=== PATIENT | female | born 1970 | race African-American/Black ===

== ENCOUNTER 2017-01-16 21:48 | Emergency (ER) | payer OTHER | END 2017-01-16 23:37 | LOC: ERS 21:48 | DX: Z02.89 Encounter for other administrative examinations (principal); D50.0 Iron deficiency anemia secondary to blood loss (chronic); I10 Essential (primary) hypertension; Z87.891 Personal history of nicotine dependence ==

== ENCOUNTER 2017-01-22 15:07 | Emergency (ER) | payer OTHER ==
[2017-01-22 16:32] LABS: #Basophils 0.1 thou/uL (0.0-0.2); #Eosinphils 0.1 thou/uL (0.0-0.7); #Lymphocytes 2.5 thou/uL (1.20-3.40); #Monocytes 0.3 thou/uL (0.11-0.59); #Neutrophils 3.3 thou/uL (1.40-6.50); %Basophils 1.1 % (0.0-1.0); %Eosinophils 0.8 % (0.0-10.0); %Lymphocytes 40.4 % (21.0-51.0); %Monocytes 4.6 % (0.0-10.0); Mean Platelet Volume 7.5 fL (7.4-10.4); Red Blood Cell (RBC) Count 4.77 mill/uL (4.20-5.40); White Blood Cell (WBC) Count 6.1 thou/uL (4.8-10.8)
[2017-01-22] MEDS ORDERED: diphenhydrAMINE HCl 50 MG/ML 1 ML VIAL ONE (16:38)
[2017-01-22] MEDS ORDERED: Acetaminophen 500 MG TAB ONE (16:39)
[2017-01-22] MEDS ORDERED: Metoclopramide HCl 10 MG/2 ML VIAL ONE (16:39)
[2017-01-22 16:59] LABS: Acetaminophen Less than 6.0 mcg/mL (10.0-30.0); Salicylate Less than 8.0 mg/dL (15.0-30.0)
[2017-01-22 17:00] LABS: ALT (SGPT) 19 U/L (8-55); AST (SGOT) 35 U/L (5-34); Alkaline Phosphatase 113 U/L (40-150); Anion Gap 19 mmol/L (10-20); BUN (Urea Nitrogen) 7 mg/dL (7.0-18.7); Bilirubin, Total 0.2 mg/dL (0.2-1.2); Calc. Creatinine Clearance 0 mL/min (70-130); Calcium 9.1 mg/dL (7.8-10.44); Carbon Dioxide 20 mmol/L (22-29); Chloride 105 mmol/L (98-107); Estimated GFR-MDRD 89; Globulin 3.3 g/dL (2.4-3.5); Protein, Total 7.5 g/dL (6.0-8.3)
[2017-01-22] MEDS ORDERED: Ondansetron HCl/PF 4 MG/2 ML Vial ONE (18:36)
[2017-01-22 19:33] LABS: Bilirubin Negative (Negative); Blood, Urine Negative (Negative); Glucose, Urine (Dipstick) Negative (Negative); Ketone, Urine Negative (Negative); Nitrite Negative (Negative); Protein, Urine (Dipstick) Negative (Neg-Trace); Urobilinogen 0.2 mg/dL (0.2-1.0)
[2017-01-22 19:44] LABS: Amphetamine Not Detected (NotDetected); Methadone Not Detected (NotDetected); Methamphetamine Not Detected (NotDetected)
== END 2017-01-22 21:15 | disposition home or self-care (01) ==
LOC: ERS 15:07 → EEVIPCON 15:07 → ERS 21:15
DX: F10.129 Alcohol abuse with intoxication, unspecified (principal); I10 Essential (primary) hypertension; Z87.891 Personal history of nicotine dependence; D50.9 Iron deficiency anemia, unspecified
CPT/HCPCS: 36415; 80053; 80306; 80307; 81003; 81025; 84443; 85025; 96361; 96374; 96375; J1200; J2405; J2765

== ENCOUNTER 2017-02-15 21:17 | Observation (INO) | payer OTHER ==
[2017-02-15 22:01] LABS: #Basophils 0.1 thou/uL (0.0-0.2); #Eosinphils 0.1 thou/uL (0.0-0.7); #Lymphocytes 1.6 thou/uL (1.20-3.40); #Monocytes 0.5 thou/uL (0.11-0.59); #Neutrophils 2.4 thou/uL (1.40-6.50); %Basophils 1.5 % (0.0-1.0); %Eosinophils 1.8 % (0.0-10.0); %Monocytes 10.6 % (0.0-10.0); Hematocrit 36.6 % (36.0-47.0); Mean Platelet Volume 8.2 fL (7.4-10.4); Red Blood Cell (RBC) Count 3.73 mill/uL (4.20-5.40); White Blood Cell (WBC) Count 4.6 thou/uL (4.8-10.8)
[2017-02-15 22:21] LABS: ALT (SGPT) 94 U/L (8-55); AST (SGOT) 76 U/L (5-34); Alkaline Phosphatase 116 U/L (40-150); Anion Gap 12 mmol/L (10-20); BUN (Urea Nitrogen) 9 mg/dL (7.0-18.7); Bilirubin, Total 0.2 mg/dL (0.2-1.2); CK (CPK) 146 U/L (29-168); Calc. Creatinine Clearance 0 mL/min (70-130); Calcium 8.7 mg/dL (7.8-10.44); Carbon Dioxide 25 mmol/L (22-29); Chloride 106 mmol/L (98-107); Estimated GFR-MDRD Greater than 90; Globulin 2.6 g/dL (2.4-3.5); Protein, Total 6.1 g/dL (6.0-8.3)
--- NOTE | 2017-02-15 22:21 | RAD ---
UPRIGHT PORTABLE CHEST ONE VIEW: History: 46-year-old female with chest pain and bilateral lower extremity swelling which began this morning. FINDINGS: Heart size is within normal limits. The lungs are clear. No pneumonia, edema, or pleural effusion. IMPRESSION: No acute intrathoracic disease. Stable from prior study of 09-27-16. POS: [facility]
[2017-02-15 22:25] LABS: Troponin I Less than 0.010 ng/mL (< 0.028)
[2017-02-15 23:28] LABS: PTT 28.9 SEC (22.9-36.1); Prothrombin Time 12.7 SEC (12.0-14.7)
[2017-02-15] MEDS ORDERED: Nitroglycerin 0.4 MG TAB (25 Tab Bottle) ONE (23:38)
[2017-02-16 00:08] LABS: Bilirubin Negative (Negative); Blood, Urine Negative (Negative); Glucose, Urine (Dipstick) Negative (Negative); Ketone, Urine Negative (Negative); Nitrite Negative (Negative); Protein, Urine (Dipstick) Negative (Neg-Trace)
[2017-02-16] MEDS ORDERED: Morphine 10 MG/ML VIAL ONE (00:38)
[2017-02-16 01:57] LABS: Troponin I Less than 0.010 ng/mL (< 0.028)
[2017-02-16] MEDS ORDERED: Acetaminophen 325 MG TAB PO PRN ×2 (02:23→03:33)
[2017-02-16] MEDS ORDERED: Ondansetron HCl/PF 4 MG/2 ML Vial IVP PRN ×2 (02:23→03:33)
[2017-02-16] MEDS ORDERED: Ondansetron ODT 4 MG TAB SL PRN (02:23)
[2017-02-16] MEDS ORDERED: Benzonatate 100 MG CAP PO PRN (03:33)
[2017-02-16] MEDS ORDERED: cloNIDine 0.1 MG TAB PO PRN (03:33)
[2017-02-16] MEDS ORDERED: Nitroglycerin 0.4 MG TAB (25 Tab Bottle) SL PRN (03:33)
[2017-02-16] MEDS ORDERED: Senokot 8.6 MG TAB PO PRN (03:33)
[2017-02-16] MEDS ORDERED: Mag-Al 1200 mg/1200 mg/30 ML UDCUP PO PRN (03:33)
[2017-02-16] MEDS ORDERED: Lorazepam 1 MG TAB PO PRN (03:33)
[2017-02-16] MEDS ORDERED: Bisacodyl 5 MG TAB PO PRN (03:33)
[2017-02-16] MEDS ORDERED: Loratadine 10 MG TAB PO PRN (03:33)
[2017-02-16] MEDS ORDERED: hydrALAZINE 20 MG/ML VIAL SLOW IVP PRN (03:33)
[2017-02-16] MEDS ORDERED: Diabetic Tussin 200 MG/10 ML UDCUP PO PRN (03:33)
[2017-02-16] MEDS ORDERED: Calcium Carbonate 500 MG ChewTAB PO PRN (03:33)
[2017-02-16 04:05] VITALS: BMI 33.1
[2017-02-16] MEDS ORDERED: Polyethylene Glycol 3350 17 GM Packet PO PRN (04:13)
[2017-02-16] MEDS ORDERED: Morphine 10 MG/ML VIAL SLOW IVP SCH (04:15)
[2017-02-16] MEDS ORDERED: Furosemide 20 MG TAB PO SCH (04:30)
[2017-02-16] MEDS: HYDROcodone/Acetaminophen 5/325 mg Tablet PO PRN ×2 (05:07→09:10)
[2017-02-16 05:12] LABS: Troponin I 0.012 ng/mL (< 0.028)
--- NOTE | 2017-02-16 05:49 | HP ---
PRIMARY CARE PHYSICIAN: Dr. Nunn at [facility]. CHIEF COMPLAINT: Swelling in both lower extremities and face along with weight gain and some chest pain. HISTORY OF PRESENT ILLNESS: Ms. An is a 46-year-old female with past medical h istory of hypertension, history of a partial small-bowel obstruction and gastric lap band slippage e michael this year as well as iron deficiency anemia who presented to the ER with the above-mentioned complaint. History is mainly obtained by the patient herself and electronic medical records have be en reviewed. According to Ms. An she has been noticing that she has some facial swelling for the last week or so. She then started to notice that both of her legs are progressively getting swollen. She denie s any problem with urination. She denies any orthopnea, PND. She did have some nonspecific chest p ain yesterday evening which resolved spontaneously. She, however, complains of back pain starting i n her lower back and traveling through her buttocks up in the front of the legs. She otherwise has no nausea, vomiting, diarrhea. She reports a 30-pound weight gain in the last few days. Upon presentation to the emergency room, she was hemodynamically stable. Her blood pressure was 155 /107, pulse of 84, saturating 95% on room air, respirations 18. Physical examination showed bilateral swelling of the legs with some pitting. Further evaluation in cluded a 12-lead EKG, which was unremarkable except for possible left atrial enlargement and a chest x-ray which did not show any pulmonary vascular congestion. Her cardiac enzymes are negative x3. She is now being admitted for further evaluation. A D-dimer has been checked and is within normal r juan as well as her lipase and her TSH. Her liver enzymes show AST at 76 and ALT at 94 with normal alkaline phosphatase, and total bilirubin. PAST MEDICAL HISTORY: 1. Hypertension. 2. Uterine fibroids. 3. Anxiety and depression. 4. Iron deficiency anemia. 5. Pseudo-tumor cerebri. 6. History of partial small-bowel obstruction and gastric lap band slippage in 09/2016. PAST SURGICAL HISTORY: 1. Tummy tuck. 2. Lap band procedure. 3. Hysterectomy. 4. Myomectomy 5. Tubal ligation. 6. Hernia repair. ALLERGIES: LISINOPRIL and IV IODINE. FAMILY HISTORY: Significant for coronary artery disease in her maternal side as well as stroke in h er maternal grandmother. Her father had lymphoma. SOCIAL HISTORY: She smokes about 5-6 cigarettes on a daily basis and trying to quit smoking. No hi story of drug or alcohol abuse. She lives with her family. HOME MEDICATIONS: The patient reports taking [place] on a regular basis along with Lyrica 200 mg p.o. t.i.d. The rest of home medications as follows; amlodipine 10 mg daily, hydrochlorothiazide 25 mg daily, MiraLax as needed. REVIEW OF SYSTEMS: The following complete review of systems was negative, unless otherwise mentioned in the HPI or below: Constitutional: Weight loss or gain, ability to conduct usual activities. Skin: Rash, itching. Eyes: Double vision, pain. ENT/Mouth: Nose bleeding, neck stiffness, pain, tenderness. Cardiovascular: Palpitations, dyspnea on exertion, orthopnea. Respiratory: Shortness of breath, wheezing, cough, hemoptysis, fever or night sweats. Gastrointestinal: Poor appetite, abdominal pain, heartburn, nausea, vomiting, constipation, or diarrhea. Genitourinary: Urgency, frequency, dysuria, nocturia. Musculoskeletal: Pain, swelling. Neurologic/Psychiatric: Anxiety, depression. Allergy/Immunologic: Skin rash, bleeding tendency. LABORATORY EXAMINATION: Her CBC shows WBCs at 4.6, hemoglobin 12, platelet count of 236. Coagulati on studies within normal limits. Serum chemistry shows potassium of 3.2, AST 76, ALT 94. Troponin less than 0.010 x3. BNP of 62, TSH 2.4, lipase 15. Chest x-ray by my review has no evidence of pleural fluid, edema or infiltrate. PHYSICAL EXAMINATION: VITAL SIGNS: Temperature 98.2, pulse 72, respirations 16, saturating 96% on room air, blood pressur e 140/79. GENERAL: In no acute distress, awake, alert, oriented x3, sitting up in bed without any discomfort. She is awake, alert, oriented x3. No sign to suggest that she is suffering from severe pain. HEENT: Mucous membrane is moist and pink. No oropharyngeal exudate or erythema. Head is normoceph alic, atraumatic. Pupils equal, reactive to light and accommodation. Extraocular movements intact. NECK: Supple without any lymphadenopathy, JVD or bruit. CHEST: Clear to auscultation without any wheezing, rales or rhonchi. Rate and rhythm is regular wi thout any murmur, rubs or gallops. ABDOMEN: Soft, nontender, nondistended, obese. No guarding, rebound or rigidity. EXTREMITIES: Shows diffuse swelling mainly involving the lower legs extending up to her knees with mild pitting without any erythema or warmth. No calf tenderness. NEUROLOGIC: Nonfocal. SKIN: Free of any rashes or bruises, feels warm and dry to touch. PSYCHIATRIC: Normal affect. VASCULAR: +2 pedal pulses felt bilaterally. IMPRESSION AND PLAN: 1. Chest pain. The patient's chest pain has resolved, though it was a minor symptom for her, given her edema and weight gain we will obtain a stress test to rule out cardiac etiology. We will also give her a dose of Lasix to calm back the fluid retention. Also, continue her amlodipine and hydroc hlorothiazide at this time. She will be admitted on telemetry unit. 2. Edema unclear etiology. She has a normal TSH and a normal cardiac workup so far. She will unde rgo stress test with measurement of ejection fraction to rule out cardiac causes. We will also obta in lower extremity Doppler ultrasound to rule out deep venous thrombosis, but the patient is low ris k. She denies any recent sedentary state. 3. Chronic pain. The patient is requesting 8 mg of morphine along with 10 mg of Penngrove combined tog ether. I have discussed this with her that I do not want to my mask her pain and minimize her sympt oms, but rather monitor her symptoms. We will minimize narcotics at this time. The patient is also requesting narcotic prescriptions upon discharge and I have made her aware that this most likely is not possible. We will defer this to the morning team. The patient's physical examination is not c onsistent with the severity of the pain she is describing 4. History of pseudotumor cerebri. The patient has recently underwent a lumbar puncture and an MRI under the care of neurologist Dr. Nova. She has been started on Topamax for migraine, but does not remember taking it. At this time, I will refer her back to her neurologist for continued evaluatio n. 5. Hypertension. Resume her Norvasc and hydrochlorothiazide and add antihypertensives on a p.r.n. basis. 6. History of iron deficiency anemia, currently resolved. 7. CODE STATUS: Full code. 8. Deep venous thrombosis and gastrointestinal prophylaxis and p.r.n. medication orders. DISPOSITION: The patient is currently being admitted to rule out acute [facility] on the telemetry floor. Further management will depend upon her clinical course.
[2017-02-16 05:59] LABS: Magnesium 2.1 mg/dL (1.6-2.6)
[2017-02-16] MEDS ORDERED: Nitroglycerin 2% Ointment 1 INCH/1 GM Packet TOP SCH (06:00)
[2017-02-16] MEDS ORDERED: FLU VACC QS2017-18 36 mo. & older 0.5 ML SYRINGE IM ONE (08:45)
[2017-02-16] MEDS ORDERED: Amlodipine 10 MG TAB PO SCH (09:00)
[2017-02-16] MEDS ORDERED: Enoxaparin Sodium 40 MG/0.4 ML SYRINGE SC SCH (09:00)
[2017-02-16] MEDS ORDERED: Famotidine 20 MG TAB PO SCH (09:00)
[2017-02-16] MEDS ORDERED: Hydrochlorothiazide 25 MG TAB PO SCH (09:00)
--- NOTE | 2017-02-16 09:01 | ULT ---
ULTRASOUND VENOUS BILATERAL LOWER EXTREMITY: Date: 02/16/17 HISTORY: Swelling and edema. FINDINGS: Multiplanar Lyons scale with color Doppler and spectral analysis of bilateral lower extremity venous system performed with linear transducer. Bilateral common femoral, femoral, proximal portion of grea ter saphenous and deep femoral veins, as well as popliteal and posterior tibial veins were interroga beverley. No deep venous thrombosis. Normal flow, augmentation, and compression. Mild edema. IMPRESSION: No deep venous thrombosis. POS: [facility]
[2017-02-16] MEDS: Pregabalin 50 MG CAP PO SCH ×2 (09:11→16:18)
[2017-02-16] MEDS: traMADol HCl 50 MG TAB PO PRN ×2 (11:20→15:50)
--- NOTE | 2017-02-16 14:44 | PDOC.PN ---
- Subjective Encounter Start Date: 02/16/17 Encounter Start Time: 14:00 Subjective: Patient without further chest pain. Does have right sided pounding LI -: for the past 3 days, resolved with Morphine but came back 3 hours later -: 2-3 weeks weight gain/edema since new med for Pseudotumor cerebri - Objective MAR Reviewed: Yes Vital Signs & Weight: Vital Signs (12 hours) Temp Pulse Resp BP BP Pulse Ox 02/16/17 12:25 98.3 F 74 16 150/94 H 96 02/16/17 09:12 72 168/94 H 02/16/17 08:00 98.2 F 72 20 02/16/17 07:46 98.2 F 72 20 168/94 H 96 02/16/17 03:15 98.0 F 74 14 140/79 98 Weight Weight 205 lb 6.4 oz I&O: 02/15/17 02/16/17 02/17/17 06:59 06:59 06:59 Intake Total 240 Output Total 300 900 Balance -60 -900 Result Diagrams: 02/15/17 21:54 02/16/17 04:28 Phys Exam - Physical Examination Constitutional: NAD HEENT: moist MMs Respiratory: no wheezing, no rales, no rhonchi, clear to auscultation bilateral Cardiovascular: RRR, no significant murmur Gastrointestinal: soft, positive bowel sounds bilateral 1+ pitting edema to knees Neurological: non-focal, moves all 4 limbs Psychiatric: normal affect, A&O x 3 Dx/Plan (1) Chest pain Code(s): R07.9 - CHEST PAIN, UNSPECIFIED Status: Resolved Plan: Stress test negative. Non-cardiac. (2) Anasarca Code(s): R60.1 - GENERALIZED EDEMA Status: Acute Plan: No evidence for CHF/HI/kidney disease. Not taking Norvasc for long time. Seems to have started after new pseudotumor cerebri medication 3 weeks ago. Will have patient find out medication and may need to stop it. Will start diuretics and BP meds. no Amlodipine. - Plan cont current plan of care, plan discussed w/ family Treat migraine, stop new meds that may be causing disease. F/u with -: PCP next week. * .
[2017-02-16] MEDS ORDERED: diphenhydrAMINE 50 MG/ML VIAL IVP SCH (15:00)
[2017-02-16] MEDS ORDERED: Potassium Chloride 20 MEQ TAB PO SCH (15:00)
[2017-02-16] MEDS ORDERED: Metoclopramide HCl 10 MG/2 ML VIAL IVP SCH (15:00)
[2017-02-16 15:26] VITALS: BP 151/101; TEMP 98.9
[2017-02-16] MEDS ORDERED: ADENOSINE 60 MG/20 ML VIAL ONE (15:34)
--- NOTE | 2017-02-16 16:16 | NM ---
STRESS ONLY NUCLEAR MEDICINE MYOCARDIAL PERFUSION SCAN: Date: 02-16-17 History: Chest pain, high blood pressure. Technique: SPECT imaging of the left ventricular myocardium was obtained during stress following int ravenous administration 27 mCi Technetium 99M Sestamibi. FINDINGS: No perfusion defect is identified. Left ventricular wall motion appears normal. Left ventricular eje ction fraction is estimated at 66% with an EDV of 99 ml and ESV of 34 ml. IMPRESSION: Unremarkable stress only myocardial perfusion scan. POS: [facility]
[2017-02-16] MEDS ORDERED: Lidocaine 1% w/Epinephrine 1:200K 30 ML VIAL FS SCH (17:30)
--- NOTE | 2017-02-17 08:19 | DIS ---
PRIMARY CARE PHYSICIAN: Anabelle Baker M.D. DIAGNOSES ON ADMISSION: 1. Chest pain, atypical. 2. Anasarca and weight gain. 3. Chronic pain. 4. Pseudotumor cerebri. 5. Hypertension. DIAGNOSES ON DISCHARGE: 1. Atypical chest pain, resolved, noncardiac. 2. Anasarca, possibly secondary to medication side effect from acetazolamide. 3. Chronic pain. 4. Tooth fracture with facial pain. 5. Pseudotumor cerebri. 6. Hypertension. CONSULTATIONS: None. PROCEDURES: 1. Nuclear medicine stress test showing no evidence of ischemic disease. 2. Venogram of lower extremities showing no evidence of DVT. LABORATORY DATA: CBC grossly within normal limits. D-dimer negative. Coagulation profile normal. Complete metabolic panel with mild hypokalemia of 3.2 and mild AST and ALT elevations of 76 and 94, negative cardiac marker sets x3. Normal brain natriuretic peptide, normal TSH, normal albumin. SUMMARY OF HOSPITAL COURSE: This is a 46-year-old -Citizen Of [place] female with past medical history of hypertension and small-bowel obstruction, gastric lap band slippage, and iron deficiency anemia, who presented with significant swelling of lower extremities and face along with weight gain and so me left-sided chest pain. She stated that the swelling was the major complaint when she came in, sh e noticed it progressing over the last 2 to 3 weeks along with a 30-pound weight gain and had signif icant swelling in her lower extremities with edema over the last few days. Denies any orthopnea or paroxysmal nocturnal dyspnea. The patient reports the only thing she has changed is that she starte d a new medicine for pseudotumor cerebri of acetazolamide sometime in the last month. All of her ot her medications remain the same. She did not have any other instigating factors. She denies takin g her amlodipine or hydrochlorothiazide for the last few months. The patient had resolution of her chest pain in the emergency room, has not had any more in the hospital. The patient did have a nucl ear medicine stress test done in the hospital which was negative for any evidence of ischemia. She also had a negative ultrasound of lower extremities as above. She had initiation of Lasix in the spital with good urine output and is starting to improve in her edema. The patient's other complain t in the hospital was throbbing right-sided head and face pain for the last 3 days, this did not res pond to medications for migraines. At which point, the patient noted that she actually had a fractu red posterior right upper wisdom tooth and that when she tried pressing on this earlier in the after noon, it actually reproduced all of her pain. A dental block was done with 3 mL of lidocaine and ep inephrine with good resolution of the pain and patient is going to see the dentist after she was dis charged. The patient is ruled out from a cardiac standpoint and she is to stop her acetazolamide an d follow up with her neurologist about her pseudotumor cerebri. DISCHARGE MANAGEMENT: Discharge to home. Follow up with Dr. Nova in the next 1 to 2 weeks and with her primary care doctor in the next 1 to 2 weeks. We are stopping her amlodipine due to her swelli ng. DISCHARGE MEDICATIONS: 1. Lyrica 200 mg 3 times a day. 2. MiraLax as needed. 3. Ultram 50 mg every 4 hours as needed for pain, 60 tablets dispensed. 4. Potassium chloride 10 mEq daily, 30 tablets dispensed. 5. Lasix 20 mg daily, 30 tablets dispensed. 6. Carvedilol 12.5 mg twice a day, 60 tablets dispensed. 7. Amoxicillin 500 mg 3 times a day for 7 days. FOLLOWUP: Dentist as soon as possible. ACTIVITIES: As tolerated. DIET: Healthy heart, low sodium diet.
== END 2017-02-16 19:41 | disposition home or self-care (01) ==
LOC: ERS 21:17 → 2SW 02-16 01:00
PROVIDERS: ADMIT Internal Medicine; ATTEND Internal Medicine
DX: R07.89 Other chest pain (principal); R60.1 Generalized edema; G89.29 Other chronic pain; I10 Essential (primary) hypertension; G93.2 Benign intracranial hypertension; F17.210 Nicotine dependence, cigarettes, uncomplicated; Z88.8 Allergy status to other drugs, medicaments and biological substances; Z91.041 Radiographic dye allergy status; Z98.84 Bariatric surgery status; Z90.710 Acquired absence of both cervix and uterus; Z98.890 Other specified postprocedural states
CPT/HCPCS: 36415; 64400; 71010; 78452; 80053; 81003; 82550; 82553; 83690; 83735; 83880; 84132; 84443; 84484; 85025; 85379; 85610; 85652; 85730; 86140; 90471; 90682; 90732; 93005; 93017; 93970; 94760; 96374; 96375; 96376; A9500; G0008; G0009; G0378; J0153; J1200; J1650; J2270; J2765; Q2036

== ENCOUNTER 2017-03-02 05:16 | Emergency (ER) | payer OTHER ==
--- NOTE | 2017-03-02 08:11 | RAD ---
PORTABLE CHEST 1 VIEW: DATE: 03/02/17. TIME: 5:44 a.m. HISTORY: Difficulty breathing and chest pain. FINDINGS: Comparison is made with the exam dated 02/15/17. The heart size is normal. The lungs are expanded without focal areas of consolidation, pneumothorax , or pleural effusions. IMPRESSION: No radiographic evidence of acute cardiopulmonary process. POS: [facility]
== END 2017-03-02 06:47 | disposition home or self-care (01) ==
LOC: ERS 05:16
DX: J20.9 Acute bronchitis, unspecified (principal); R09.1 Pleurisy; M19.90 Unspecified osteoarthritis, unspecified site; I10 Essential (primary) hypertension; F17.210 Nicotine dependence, cigarettes, uncomplicated
CPT/HCPCS: 71010; 93005

== ENCOUNTER 2019-06-25 02:19 | Emergency (ER) | payer OTHER ==
[2019-06-25] MEDS ORDERED: Acetaminophen 500 MG TAB ONE (02:53)
[2019-06-25 03:06] LABS: #Basophils 0.1 thou/uL (0.0-0.2); #Eosinphils 0.2 thou/uL (0.0-0.7); #Lymphocytes 2.1 thou/uL (1.20-3.40); #Monocytes 0.5 thou/uL (0.11-0.59); #Neutrophils 3.1 thou/uL (1.40-6.50); %Basophils 1.2 % (0.0-1.0); %Eosinophils 3.1 % (0.0-10.0); %Lymphocytes 35.3 % (21.0-51.0); %Monocytes 8.3 % (0.0-10.0); %Neutrophils 52.1 % (42.0-75.0); Hemoglobin 12.8 g/dL (12.0-16.0); Mean Corpuscular HGB CONC 34.4 g/dL (32.0-36.0); Mean Corpuscular Hemoglobin 31.6 pg (27.0-31.0); Mean Corpuscular Volume 91.9 fL (78.0-98.0); Mean Platelet Volume 9.3 fL (7.4-10.4); Platelet Count 170 thou/uL (130-400); RBC Distribution Width 12.4 % (11.5-14.5); Red Blood Cell (RBC) Count 4.06 mill/uL (4.20-5.40)
[2019-06-25] MEDS ORDERED: Ketorolac Tromethamine 30 MG/ML VIAL ONE (03:46)
[2019-06-25 03:55] LABS: ALT (SGPT) 10 U/L (8-55); AST (SGOT) 18 U/L (5-34); Albumin 4.3 g/dL (3.5-5.0); Alkaline Phosphatase 66 U/L (40-110); Anion Gap 14 mmol/L (10-20); BUN (Urea Nitrogen) 15 mg/dL (7.0-18.7); Bilirubin, Total 0.3 mg/dL (0.2-1.2); Calc. Creatinine Clearance 0 mL/min (70-130); Calcium 9.8 mg/dL (7.8-10.44); Carbon Dioxide 26 mmol/L (22-29); Chloride 102 mmol/L (98-107); Estimated GFR-MDRD Greater than 90; Globulin 2.7 g/dL (2.4-3.5); Glucose 88 mg/dL (70-105); Potassium 3.1 mmol/L (3.5-5.1); Sodium 139 mmol/L (136-145)
--- NOTE | 2019-06-25 07:55 | CT ---
PRELIMINARY REPORT/[facility]/EMERGENCY AFTER HOURS PROCEDURE: EXAM: CT Head Without Intravenous Contrast. CLINICAL HISTORY: 48F presenting from nursing home for possible seizure like activity today. PMH of pseudotum or cerebri but not currently medicated and no recent LPs. TECHNIQUE: Axial computed tomography images of the head/brain without intravenous contrast. COMPARISON: Report from CT head 05/08/2016. FINDINGS: BRAIN: No acute intraparenchymal hemorrhage. No mass lesion. No CT evidence for acute territorial inf arct. No midline shift or extra-axial collection. VENTRICLES: No hydrocephalus. ORBITS: The orbits are unremarkable. SINUSES AND MASTOIDS: The paranasal sinuses and mastoid air cells are clear. SOFT TISSUES: No significant facial or scalp soft tissue swelling evident. No radiopaque foreign body is seen. BONES: No acute skull fracture. IMPRESSION: No acute intracranial abnormality. ELECTRONICALLY SIGNED BY: Bharathi Cook M.D. Jun 25, 2019 3:15:07 AM SHEET TESTER FINAL REPORT: CT BRAIN: PROVIDED CLINICAL HISTORY: Seizure COMPARISON: 05/08/2016 FINDINGS/IMPRESSION: Agree with the preliminary interpretation given by [facility]. Transcribed Date/Time: 06/25/2019 8:07 AM
== END 2019-06-25 04:18 ==
LOC: ERS 02:19
DX: R56.9 Unspecified convulsions (principal); D50.9 Iron deficiency anemia, unspecified; I10 Essential (primary) hypertension; F17.210 Nicotine dependence, cigarettes, uncomplicated; Z79.1 Long term (current) use of non-steroidal anti-inflammatories (NSAID)
CPT/HCPCS: 36415; 70450; 80053; 83605; 85025; J1885

== ENCOUNTER 2019-06-25 05:47 | Observation (INO) | payer OTHER ==
[2019-06-25] MEDS ORDERED: Acetaminophen 325 MG TAB PO PRN (06:05)
[2019-06-25] MEDS ORDERED: Senokot S 8.6-50 MG TAB PO PRN (06:05)
[2019-06-25 07:28] VITALS: BMI 30.5
[2019-06-25] MEDS: Dextrose 5 % And 0.9 % NaCl 1,000 ML IV SCH ×3 (08:34→17:22)
[2019-06-25] MEDS: Heparin 5,000 UNITS/ML VIAL SC SCH ×3 (08:34→21:05)
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
[2019-06-25] MEDS ORDERED: Topiramate 25 MG TAB PO SCH (12:20)
[2019-06-25] MEDS: Ketorolac Tromethamine 30 MG/ML VIAL IVP PRN (12:31)
[2019-06-25] MEDS ORDERED: traMADol HCl 50 MG TAB PO PRN (12:39)
[2019-06-25] MEDS ORDERED: Pregabalin 50 MG CAP PO SCH (13:00)
[2019-06-25] MEDS ORDERED: Hydrochlorothiazide 25 MG TAB PO SCH (13:00)
[2019-06-25] MEDS ORDERED: Citalopram 20 MG TAB PO SCH (13:00)
[2019-06-25] MEDS ORDERED: Estrogens, Conjugated 0.3 MG TAB PO SCH (13:00)
[2019-06-25] MEDS ORDERED: Multivit, Therapeutic 1 TAB PO SCH (13:00)
[2019-06-25] MEDS ORDERED: Amlodipine 10 MG TAB PO SCH (13:00)
[2019-06-25] MEDS ORDERED: Lorazepam 2 MG/ML VIAL SLOW IVP PRN (14:23)
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
[2019-06-25] MEDS: Pregabalin 50 MG CAP PO SCH ×2 (15:58→21:05)
[2019-06-25] MEDS ORDERED: PREGABALIN 75 MG PO SCH (21:00)
[2019-06-25] MEDS ORDERED: Pregabalin 75 MG CAP PO SCH (21:00)
[2019-06-25] MEDS ORDERED: Topiramate 100 MG TAB PO SCH (21:00)
[2019-06-25] MEDS: Topiramate 25 MG TAB PO SCH (21:05)
[2019-06-25] MEDS: diphenhydrAMINE 25 MG CAP PO SCH (22:33)
[2019-06-26] MEDS: diphenhydrAMINE 25 MG CAP PO SCH (00:54)
[2019-06-26] MEDS: Ketorolac Tromethamine 30 MG/ML VIAL IVP PRN ×2 (01:10→10:52)
[2019-06-26] MEDS: Ondansetron PF 4 MG/2 ML Vial IVP PRN ×2 (01:15→10:56)
[2019-06-26 05:07] LABS: #Eosinphils 0.2 thou/uL (0.0-0.7); #Lymphocytes 2.3 thou/uL (1.20-3.40); #Monocytes 0.4 thou/uL (0.11-0.59); #Neutrophils 2.3 thou/uL (1.40-6.50); %Basophils 0.9 % (0.0-1.0); %Eosinophils 4.5 % (0.0-10.0); %Lymphocytes 44.2 % (21.0-51.0); %Monocytes 6.7 % (0.0-10.0); %Neutrophils 43.7 % (42.0-75.0); Hemoglobin 12.7 g/dL (12.0-16.0); Mean Corpuscular HGB CONC 33.2 g/dL (32.0-36.0); Mean Corpuscular Volume 93.4 fL (78.0-98.0); Mean Platelet Volume 9.8 fL (7.4-10.4); Platelet Count 172 thou/uL (130-400); RBC Distribution Width 12.6 % (11.5-14.5); Red Blood Cell (RBC) Count 4.11 mill/uL (4.20-5.40); White Blood Cell (WBC) Count 5.2 thou/uL (4.8-10.8)
[2019-06-26 05:28] LABS: ALT (SGPT) 12 U/L (8-55); AST (SGOT) 18 U/L (5-34); Albumin 3.8 g/dL (3.5-5.0); Alkaline Phosphatase 55 U/L (40-110); Anion Gap 9 mmol/L (10-20); BUN (Urea Nitrogen) 11 mg/dL (7.0-18.7); Bilirubin, Total 0.2 mg/dL (0.2-1.2); Calc. Creatinine Clearance 120 mL/min (70-130); Calcium 9.2 mg/dL (7.8-10.44); Carbon Dioxide 29 mmol/L (22-29); Chloride 107 mmol/L (98-107); Estimated GFR-MDRD Greater than 90; Globulin 2.5 g/dL (2.4-3.5); Glucose 85 mg/dL (70-105); Potassium 3.8 mmol/L (3.5-5.1); Protein, Total 6.3 g/dL (6.0-8.3); Sodium 141 mmol/L (136-145)
[2019-06-26] MEDS: Pregabalin 50 MG CAP PO SCH (08:30)
[2019-06-26] MEDS: Topiramate 25 MG TAB PO SCH (08:31)
[2019-06-26] MEDS: Heparin 5,000 UNITS/ML VIAL SC SCH (08:33)
[2019-06-26] MEDS ORDERED: Amlodipine 10 MG TAB PO SCH (09:00)
[2019-06-26] MEDS ORDERED: Hydrochlorothiazide 25 MG TAB PO SCH (09:00)
[2019-06-26] MEDS ORDERED: Non-Formulary Item 1 EACH (Multivitamin [Multivitamins] 1 CAP) PO SCH (09:00)
[2019-06-26] MEDS ORDERED: Multivit, Therapeutic 1 TAB PO SCH (09:00)
[2019-06-26] MEDS ORDERED: Estrogens, Conjugated 0.3 MG TAB PO SCH (09:00)
[2019-06-26] MEDS ORDERED: Citalopram 20 MG TAB PO SCH (09:00)
[2019-06-26] MEDS ORDERED: ESTROGENS CONJUGATED 0.9 MG PO SCH (09:00)
[2019-06-26 11:46] VITALS: BP 123/84; TEMP 99.6
--- NOTE | 2019-06-26 16:17 | DIS ---
DATE OF ADMISSION: 06/25/2019 DATE OF DISCHARGE: 06/26/2019 DISCHARGE DISPOSITION: To [facility]. PRIMARY DISCHARGE DIAGNOSIS: Suspected seizure. SECONDARY DISCHARGE DIAGNOSES: History of obesity with lap band procedure, depression, anxiety, alcohol abuse, history of pseudotumor cerebri, hypertension. PROCEDURES DONE DURING HOSPITALIZATION: H and H 12 and 38, platelet count 172 with 43% neutrophils. BUN 11, creatinine 0.7. Prolactin is 11.2. CT brain done on the day of admission showed no acute intracranial abnormality. INPATIENT CONSULT: Dr. Townsend for Neurology. DISCHARGE PLAN: The patient to follow up with her [facility] primary care physician in 1 week. She also needs to follow up with Dr. Townsend, neurologist in 6 weeks. The patient has procedure done on her wisdom tooth and needs to follow up with her dentist in 4 to 5 days. BRIEF COURSE DURING HOSPITALIZATION: The patient initially was sent over from [facility] facility after she had 3 episodes of shaking of her legs with upper extremity being stiff and her back was arched over with eyes rolled back in. She had 2 more such episodes after that. In view of this history, the patient was placed under observation on the stroke unit for seizure. She was consuming nearly two gallons of vodka prior to being sent to [facility] facility 4 to 5 days back. The patient was on a rapid taper of Librium prior to arrival. Her Librium taper was completed 2 days prior to arrival here. In view of these circumstances, the patient was closely monitored on Stroke Unit. She has not had any further seizures. She was placed on Topamax 50 mg twice daily. An initial dose of 25 mg was given first. She has tolerated Topamax. She is neurologically stable and will be discharged back to [facility] facility. Please note I have examined patient on the day of discharge. Job ID: [id number] [id number]
== END 2019-06-26 13:57 ==
LOC: ERS 05:47 → 2SE 06:07
PROVIDERS: ADMIT Internal Medicine Sleep Medicine; ATTEND Internal Medicine Sleep Medicine
DX: R29.818 Other symptoms and signs involving the nervous system (principal); F41.9 Anxiety disorder, unspecified; F32.9 Major depressive disorder, single episode, unspecified; I10 Essential (primary) hypertension; F10.10 Alcohol abuse, uncomplicated; F17.210 Nicotine dependence, cigarettes, uncomplicated; Z79.899 Other long term (current) drug therapy; Z98.84 Bariatric surgery status; Z68.30 Body mass index [BMI] 30.0-30.9, adult; Z90.710 Acquired absence of both cervix and uterus; Z98.51 Tubal ligation status; Z98.890 Other specified postprocedural states; Z91.041 Radiographic dye allergy status; Z88.8 Allergy status to other drugs, medicaments and biological substances
CPT/HCPCS: 36415; 70450; 80053; 83605; 84146; 85025; 96361; 96365; 96372; 96374; 96375; 96376; G0378; J1644; J1885; J1953; J2405; Q0163

== ENCOUNTER 2019-06-26 23:26 | Emergency (ER) | payer OTHER ==
[2019-06-27] MEDS ORDERED: Topiramate 25 MG TAB PO SCH (00:30)
[2019-06-27] MEDS ORDERED: Ketorolac Tromethamine 60 MG/2 ML VIAL ONE (01:00)
== END 2019-06-27 01:22 ==
LOC: ERS 23:26
DX: R56.9 Unspecified convulsions (principal); F17.210 Nicotine dependence, cigarettes, uncomplicated; D50.9 Iron deficiency anemia, unspecified; I10 Essential (primary) hypertension; F32.9 Major depressive disorder, single episode, unspecified; M19.90 Unspecified osteoarthritis, unspecified site; Z79.1 Long term (current) use of non-steroidal anti-inflammatories (NSAID); Z79.899 Other long term (current) drug therapy
CPT/HCPCS: 96372; 99284; J1885